=== PATIENT | female | born 1975 | race Caucasian/White ===

== ENCOUNTER 2016-07-20 17:59 | Emergency (ER) | payer BC ==
[~2016-07-20] VITALS: Ht 154.9 cm; Wt 53.1 kg
[2016-07-20] MEDS ORDERED: LEVO75TA6 PO (18:35)
[2016-07-20] MEDS ORDERED: CNC1KV (18:35)
[2016-07-20] MEDS ORDERED: TIZA2TAB3 (18:35)
[2016-07-20] MEDS ORDERED: SUMA100T2 PO (18:35)
[2016-07-20] MEDS ORDERED: LACTATED RINGERS 1,000 ML IV ONE ×2 (18:52→19:40)
[2016-07-20 19:00] LABS: BASOPHILS % (AUTO) 0 % (0-10); EOSINOPHILS % (AUTO) 1 % (0-10); LYMPHOCYTES # (AUTO) 1.9 X 10^3 (1.0-4.0); LYMPHOCYTES % (AUTO) 23 % (12-44); MEAN CORPUSCULAR HEMOGLOBIN 25 PG (25-34); MEAN CORPUSCULAR HGB CONC 32 G/DL (32-36); MEAN CORPUSCULAR VOLUME 79 FL (80-99); MONOCYTES # (AUTO) 0.5 X 10^3 (0.0-1.0); MONOCYTES % (AUTO) 6 % (0-12); NEUTROPHILS # (AUTO) 5.8 X 10^3 (1.8-7.8); NEUTROPHILS % (AUTO) 71 % (42-75); PLATELET COUNT 524 10^3/uL (130-400); RED CELL DISTRIBUTION WIDTH 14.9 % (10.0-14.5); WHITE BLOOD COUNT 8.2 10^3/uL (4.3-11.0)
[2016-07-20] MEDS ORDERED: ORPHENADRINE 60 MG/2 ML (NORFLEX) AMP IV ONE (19:00)
[2016-07-20] MEDS ORDERED: ONDANSETRON 4 MG/2 ML (SDV) Z0FRAN IVP ONE (19:00)
[2016-07-20] MEDS ORDERED: methylPREDNISolone 125 MG (Solu-MEDROL) VIAL IVP ONE (19:00)
[2016-07-20 19:17] LABS: ALANINE AMINOTRANSFERASE 9 U/L (0-55); ALBUMIN 4.3 G/DL (3.2-4.5); ANION GAP 10 MMOL/L (5-14); ASPARTATE AMINO TRANSFERASE 12 U/L (5-34); BILIRUBIN,TOTAL 0.3 MG/DL (0.1-1.0); BLOOD UREA NITROGEN 9 MG/DL (7-18); BUN/CREATININE RATIO 11; CALCIUM 9.5 MG/DL (8.5-10.1); CARBON DIOXIDE 24 MMOL/L (21-32); CHLORIDE 106 MMOL/L (98-107); CREATININE SERUM 0.79 MG/DL (0.60-1.30); GFR ESTIMATED > 60; GLUCOSE 114 MG/DL (70-105); POTASSIUM 3.8 MMOL/L (3.6-5.0); SODIUM 140 MMOL/L (135-145); TOTAL PROTEIN 7.3 G/DL (6.4-8.2)
[2016-07-20] MEDS ORDERED: ONDA4TAB8 PO (20:00)
[2016-07-20] MEDS ORDERED: AMOX-358 PO (20:00)
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
[2016-07-20 20:57] VITALS: BP 151/96
--- OUTSIDE RECORDS SUMMARY | 2016-08-14 05:09 | XMS REPORT | Continuity of Care Document ---
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 Localized obesity (disorder) 05/17/2016 Diagnosis 2016 [facility] Excess skin of abdominal wall (finding) 05/17/2016 Diagnosis 05/21/2016 [facility] Medications Medication Details Route Status Patient Instructions Ordering Provider Order Date Source No Known Medications No known medications Active [facility] Allergies, Adverse Reactions, Alerts Substance Category Reaction Severity Reaction type Status Date Reported Comments Source Hydrocodone Assertion itching Drug allergy [facility] Immunizations Immunization Date Given Site Status Last Updated Comments Source No data available for this section No data available for this section [facility] Results Vital Signs Encounters Location Location Details Encounter Type Encounter Number Reason For Visit Attending Provider ADM Date DC Date Status Source [facility] [id number] Outpatient [id number] Monicokeyana Rangel 05/17/2016 05/17/2016 Active [facility] Procedures Procedure Code Date Perfomer Comments Source Abdominoplasty, Liposuction Lower Back And Flanks With Fat Transfer To Buttocks , Bilateral Breast Augmentation 05/17/2016 [facility] Breast implant removal and upper blepharoplasty 04/24/2015 [facility]. elbow fx repair 04/24/2009 [facility] breast augmentation 2008 [facility]. mastopexy; Implant removal 04/24/2007 [facility] breast augmentation 2004 [facility]. gastric bypass 04/24/2003 [facility] Plan of Care Social History Assessment and Plan Family History Value Date Source Advance Directives Order Name Results Value Date Source
--- OUTSIDE RECORDS SUMMARY | 2016-08-14 05:09 | XMS REPORT | Continuity of Care Document ---
Author Author [facility] Organization [facility] Address Unknown Phone Unavailable Allergies Active Description Code Type Severity Reaction Onset Reported/Identified Relationship to Patient Clinical Status Yes morphine [id number] Drug Allergy Unknown N/A 07/20/2016 Medications Problems Date Dx Coded Attending Type Code Diagnosis Diagnosed By 03/05/2015 ANTONI JACOBS, SUNIL Wu Ot Z12.31 07/21/2016 KELSEY DAVE DO Ot E86.9 VOLUME DEPLETION, UNSPECIFIED 07/21/2016 MARIEL DAVE DOA Bebeto Ot G43.909 MIGRAINE, UNSP, NOT INTRACTABLE, WITHOUT 07/21/2016 KELSEY DAVE DO Ot J30.1 ALLERGIC RHINITIS DUE TO POLLEN 07/21/2016 KELSEY DAVE DO Ot R11.2 NAUSEA WITH VOMITING, UNSPECIFIED Procedures Results Test Result Range Complete blood count (CBC) with automated white blood cell (WBC) differential - 07/20/16 18:45 Blood leukocytes automated count (number/volume) 8.2 10*3/ uL 4.3-11.0 Blood erythrocytes automated count (number/volume) 4.60 10*6 /uL 4.35-5.85 Venous blood hemoglobin measurement (mass/volume) 11.5 g/dL 11.5-16.0 Blood hematocrit (volume fraction) 37 % 35-52 Automated erythrocyte mean corpuscular volume 79 [foz_us] 80-99 Automated erythrocyte mean corpuscular hemoglobin (mass per erythrocyte) 25 pg 25-34 Automated erythrocyte mean corpuscular hemoglobin concentration measurement ( mass/volume) 32 g/dL 32-36 Automated erythrocyte distribution width ratio 14.9 % 10.0-14.5 Automated blood platelet count (count/volume) 524 10*3/uL 130-400 Automated blood platelet mean volume measurement 9.0 [foz_us ] 7.4-10.4 Automated blood neutrophils/100 leukocytes 71 % 42-75 Automated blood lymphocytes/100 leukocytes 23 % 12-44 Blood monocytes/100 leukocytes 6 % 0-12 Automated blood eosinophils/100 leukocytes 1 % 0-10 Automated blood basophils/100 leukocytes 0 % 0-10 Blood neutrophils automated count (number/volume) 5.8 10*3 1.8-7.8 Blood lymphocytes automated count (number/volume) 1.9 10*3 1.0-4.0 Blood monocytes automated count (number/volume) 0.5 10*3 0.0-1.0 Automated eosinophil count 0.0 10*3/uL 0.0-0.3 Automated blood basophil count (count/volume) 0.0 10*3/uL 0.0-0.1 Serum or plasma choriogonadotropin ( test) detection - 07/20/16 18:45 Serum or plasma choriogonadotropin ( test) detection NEGATIVE NEGATIVE Comprehensive metabolic panel - 07/20/16 18:45 Serum or plasma sodium measurement (moles/volume) 140 mmol/ L 135-145 Serum or plasma potassium measurement (moles/volume) 3.8 mmol/L 3.6-5.0 Serum or plasma chloride measurement (moles/volume) 106 mmol /L 98-107 Carbon dioxide 24 mmol/L 21-32 Serum or plasma anion gap determination (moles/volume) 10 mmol/L 5-14 Serum or plasma urea nitrogen measurement (mass/volume) 9 mg /dL 7-18 Serum or plasma creatinine measurement (mass/volume) 0.79 mg /dL 0.60-1.30 Serum or plasma urea nitrogen/creatinine mass ratio 11 NRG Serum or plasma creatinine measurement with calculation of estimated glomerular filtration rate > NRG Serum or plasma glucose measurement (mass/volume) 114 mg/dL 70-105 Serum or plasma calcium measurement (mass/volume) 9.5 mg/dL 8.5-10.1 Serum or plasma total bilirubin measurement (mass/volume) 0.3 mg/dL 0.1-1.0 Serum or plasma alkaline phosphatase measurement (enzymatic activity/volume) 89 U/L 40-136 Serum or plasma aspartate aminotransferase measurement (enzymatic activity/ volume) 12 U/L 5-34 Serum or plasma alanine aminotransferase measurement (enzymatic activity/volume ) 9 U/L 0-55 Serum or plasma protein measurement (mass/volume) 7.3 g/dL 6.4-8.2 Serum or plasma albumin measurement (mass/volume) 4.3 g/dL 3.2-4.5 Encounters AC[facility] No. Visit Date/Time Discharge Status Pt. Type Provider Facility Loc./Unit Complaint [id number] 07/20/2016 18:01:00 2016 20:57:00 DIS Outpatient KELSEY DAVE DO [facility] ER NAUSEA/VOMITING/MIGRAINE [id number] 02/03/2015 09:50:00 2014 23:59:59 CLS Outpatient ANTONI JACOBS, SUNIL Wu [facility] RAD
== END 2016-07-20 20:57 | disposition home or self-care (01) ==
LOC: EDUNIT# 17:59 → ER 18:01
DX: R11.2 Nausea with vomiting, unspecified (principal); G43.909 Migraine, unspecified, not intractable, without status migrainosus; E86.9 Volume depletion, unspecified; J30.1 Allergic rhinitis due to pollen
CPT/HCPCS: 36415; 80053; 84703; 85025; 93041; 96361; 96374; 96375; 99282

== ENCOUNTER → 2017-04-20 | Outpatient (CLI) | payer BC ==
[~2017-04-20] VITALS: Ht 154.9 cm; Wt 53.1 kg
[~2017-04-20] MED LIST: AMOX-358 PO; CNC1KV; IRON DEXTRAN INJECTION 25 MG in NS (IVPB) 50 ML IV ONE; IRON DEXTRAN INJECTION 975 MG in NS (IVPB) 250 ML IV ONE; LEVO75TA6 PO; NS IV 500 ML 500 ML IV SCH; ONDA4TAB8 PO; SUMA100T2 PO; TIZA2TAB3
[2017-04-20 14:18] VITALS: BP 145/89
[2017-04-20 16:30] VITALS: BP 145/89
== END ==
LOC: SDC 12:54
PROVIDERS: ATTEND Internal Medicine
DX: D50.9 Iron deficiency anemia, unspecified (principal)
CPT/HCPCS: 96365

== ENCOUNTER → 2017-05-23 | Outpatient (CLI) | payer BC ==
[~2017-05-23] VITALS: Ht 154.9 cm; Wt 53.1 kg
[~2017-05-23] MED LIST changes: +IRON DEXTRAN IM NR; -IRON DEXTRAN INJECTION 25 MG in NS (IVPB) 50 ML IV ONE; +IRON DEXTRAN INJECTION 975 MG in NS (IVPB) 250 ML IM ONE; +IRON DEXTRAN IV NR; +NS IM NR; -NS IV 500 ML 500 ML IV SCH; +NS IV NR; +[UNRECOGNIZED DRUG - OTHER] IM NR; +[UNRECOGNIZED DRUG - OTHER] IV NR
[2017-05-23 13:21] VITALS: BP 133/71
[2017-05-23 15:59] VITALS: BP 133/71
== END ==
LOC: SDC 13:01
PROVIDERS: ATTEND Internal Medicine
DX: D50.9 Iron deficiency anemia, unspecified (principal)
CPT/HCPCS: 96365; 96366

== ENCOUNTER 2020-08-19 15:07 | Emergency (ER) | payer BC, OTHER ==
[~2020-08-19] VITALS: Ht 154.9 cm; Wt 59.0 kg
[~2020-08-19 15:07] MED LIST changes: -IRON DEXTRAN IM NR; -IRON DEXTRAN INJECTION 975 MG in NS (IVPB) 250 ML IM ONE; -IRON DEXTRAN INJECTION 975 MG in NS (IVPB) 250 ML IV ONE; -IRON DEXTRAN IV NR; -NS IM NR; -NS IV NR; +TIZA-169; -TIZA2TAB3; -[UNRECOGNIZED DRUG - OTHER] IM NR; -[UNRECOGNIZED DRUG - OTHER] IV NR
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
[2020-08-19 15:37] LABS: BASOPHILS # (AUTO) 0.1 10^3/uL (0.0-0.1); BASOPHILS % (AUTO) 1 % (0-10); EOSINOPHILS # (AUTO) 0.1 10^3/uL (0.0-0.3); EOSINOPHILS % (AUTO) 2 % (0-10); HEMATOCRIT 39 % (35-52); HEMOGLOBIN 12.5 g/dL (11.5-16.0); LYMPHOCYTES # (AUTO) 2.2 10^3/uL (1.0-4.0); LYMPHOCYTES % (AUTO) 32 % (12-44); MEAN CORPUSCULAR HEMOGLOBIN 29 pg (25-34); MEAN CORPUSCULAR HGB CONC 32 g/dL (32-36); MEAN CORPUSCULAR VOLUME 93 fL (80-99); MEAN PLATELET VOLUME 8.9 fL (9.0-12.2); MONOCYTES # (AUTO) 0.4 10^3/uL (0.0-1.0); MONOCYTES % (AUTO) 6 % (0-12); NEUTROPHILS # (AUTO) 3.9 10^3/uL (1.8-7.8); NEUTROPHILS % (AUTO) 59 % (42-75); PLATELET COUNT 331 10^3/uL (130-400); WHITE BLOOD COUNT 6.7 10^3/uL (4.3-11.0)
[2020-08-19 15:54] LABS: ALBUMIN 4.2 GM/DL (3.2-4.5); BILIRUBIN,TOTAL 0.4 MG/DL (0.1-1.0); CALCIUM 9.2 MG/DL (8.5-10.1); CREATININE SERUM 1.22 MG/DL (0.60-1.30); POTASSIUM 3.9 MMOL/L (3.6-5.0); TOTAL PROTEIN 7.2 GM/DL (6.4-8.2)
[2020-08-19 16:08] LABS: AMPHETAMINE SCREEN, URINE POSITIVE (NEGATIVE); BARBITURATE SCREEN URINE NEGATIVE (NEGATIVE); BENZODIAZEPINES SCREEN URINE NEGATIVE (NEGATIVE); CANNABINOID SCREEN, URINE NEGATIVE (NEGATIVE); COCAINE SCREEN URINE NEGATIVE (NEGATIVE); METHADONE STAT NEGATIVE (NEGATIVE); METHAMPHETAMINE SCREEN URINE S NEGATIVE (NEGATIVE); OPIATE SCREEN URINE NEGATIVE (NEGATIVE); OXYCODONE STAT NEGATIVE (NEGATIVE); PROPOXYPHENE STAT NEGATIVE (NEGATIVE); TRICYCLIC ANTIDEPRESSANTS SCRE POSITIVE (NEGATIVE)
[2020-08-19 16:23] LABS: BILIRUBIN,URINE NEGATIVE (NEGATIVE); CLARITY,URINE CLEAR; COLOR,URINE YELLOW; GLUCOSE, URINE (UA) NEGATIVE (NEGATIVE); KETONES,URINE NEGATIVE (NEGATIVE); LEUKOCYTE ESTERASE ,URINE NEGATIVE (NEGATIVE); NITRITE,URINE NEGATIVE (NEGATIVE); PH,URINE 5.5 (5-9); PROTEIN,URINE NEGATIVE (NEGATIVE)
[2020-08-19 16:31] LABS: AMORPHOUS SEDIMENT,UR FEW AMOR URATES /LPF; BACTERIA,URINE TRACE /HPF; RBC,URINE RARE /HPF
[2020-08-19 16:51] VITALS: BP 124/86
== END 2020-08-19 16:51 | disposition home or self-care (01) ==
LOC: EDUNIT# 15:07 → ER 15:09
DX: R25.3 Fasciculation (principal); E03.9 Hypothyroidism, unspecified; Z79.890 Hormone replacement therapy
CPT/HCPCS: 36415; 80053; 80306; 81000; 85025; 99282

== ENCOUNTER → 2021-03-03 | Outpatient (CLI) | payer BC, OTHER ==
--- NOTE | 2021-03-03 14:14 | Diagnostic Imaging Report ---
INDICATION: Routine screening. COMPARISON: 02/03/2015. TECHNIQUE: 2D and 3D bilateral screening mammography was performed with CAD. FINDINGS: Bilateral subpectoral breast implants are noted. The implant contours appear smooth. Scattered fibroglandular densities in both breasts are noted. Benign calcifications in the central left breast and a benign nodule in the lateral left breast appear stable. No new mass or malignant-appearing microcalcifications are seen. The axillae are unremarkable. IMPRESSION: No mammographic features suspicious for malignancy are identified. ACR BI-RADS Category 2: Benign findings. Result letter will be mailed to the patient. Note: At least 10% of breast cancer is not imaged by mammography. Dictated by: Dictated on workstation # [id number]
== END ==
LOC: RAD 10:15
PROVIDERS: ATTEND Internal Medicine
DX: Z12.31 Encounter for screening mammogram for malignant neoplasm of breast (principal)
CPT/HCPCS: 77063; 77067